=== PATIENT | male | born 1970 | race Caucasian/White ===

== ENCOUNTER 2020-07-31 16:43 | Emergency (ER) | payer MEDICAID, OTHER ==
--- NOTE | 2020-07-31 16:57 | ER Document Report ---
ED Medical Screen (RME) - General Chief Complaint: Chest Pain > 30 Stated Complaint: CHEST PAIN Time Seen by Provider: 07/31/20 16:52 Primary Care Provider: KIMBER THEODORE PA [Primary Care Provider] - Follow up as needed Mode of Arrival: Ambulatory Information source: Patient Notes: 49-year-old male presented ED for complaint of chest pain since this morning. He states it has been intermittent since then. States it is a level 3 out of 5 pain. He states the pain is a dull ache. Denies any shortness of breath. He states it does radiate to his back. He states is between his shoulder blades in the back. He denies any cardiac history. He states his mother did have cardiac problems but they started in her 60s. We will get blood chest x-ray EKG and have patient seen by a provider. States he smokes 1/2 pack a day, drinks a sixpack on the weekend, denies any illicit drugs. I have greeted and performed a rapid initial assessment of this patient. A comprehensive ED assessment and evaluation of the patient, analysis of test results and completion of medical decision making process will be conducted by an additional ED providers. TRAVEL OUTSIDE OF THE [place] IN LAST 30 DAYS: No - Related Data Allergies/Adverse Reactions: No Known Allergies Allergy (Verified 07/31/20 16:56) Past Medical History - Past Medical History Cardiac Medical History: Denies: Hx Coronary Artery Disease, Hx Heart Attack, Hx Hypertension Pulmonary Medical History: Denies: Hx Asthma, Hx Bronchitis, Hx COPD, Hx Pneumonia Neurological Medical History: Denies: Hx Cerebrovascular Accident, Hx Seizures Musculoskeltal Medical History: Denies Hx Arthritis - Immunizations Hx Diphtheria, Pertussis, Tetanus Vaccination: Yes - PT THINKS HE HAD PNEUMONIA SHOT IN 2007 Physical Exam - Vital signs Vitals: Temp Pulse Resp BP Pulse Ox 97.8 F 95 16 136/80 H 100 07/31/20 16:54 07/31/20 16:54 07/31/20 16:54 07/31/20 16:54 07/31/20 16:54 Course - Vital Signs Vital signs: Temp Pulse Resp BP Pulse Ox 97.8 F 95 16 136/80 H 100 07/31/20 16:54 07/31/20 16:54 07/31/20 16:54 07/31/20 16:54 07/31/20 16:54 Doctor's Discharge - Discharge Referrals: KIMBER THEODORE PA [Primary Care Provider] - Follow up as needed
--- NOTE | 2020-07-31 17:28 | RADIOLOGY REPORT (SQ) ---
EXAM DESCRIPTION: CHEST 2 VIEWS IMAGES COMPLETED DATE/TIME: 07/31/2020 5:06 pm REASON FOR STUDY: Chest pain radiates to back COMPARISON: None. TECHNIQUE: Frontal and lateral radiographic views of the chest acquired. NUMBER OF VIEWS: Two view. LIMITATIONS: None. FINDINGS: LUNGS AND PLEURA: No opacities, masses or pneumothorax. No pleural effusion. MEDIASTINUM AND HILAR STRUCTURES: No masses or contour abnormalities. HEART AND VASCULAR STRUCTURES: Heart normal size. No evidence for failure. BONES: No acute findings. HARDWARE: None in the chest. OTHER: No other significant finding. IMPRESSION: NO SIGNIFICANT RADIOGRAPHIC FINDING IN THE CHEST. TECHNICAL DOCUMENTATION: JOB ID: [id number] 2010 [employer]- All Rights Reserved Reading location - IP/workstation name: [email or web address]
[2020-07-31 17:32] LABS: ABSOLUTE BASOPHILS # (AUTO) 0.1 10^3/uL (0.0-0.2); ABSOLUTE EOSINOPHILS # (AUTO) 0.2 10^3/uL (0.0-0.6); ABSOLUTE LYMPHOCYTES (AUTO) 2.6 10^3/uL (0.5-4.7); ABSOLUTE MONOCYTES (AUTO) 0.7 10^3/uL (0.1-1.4); ABSOLUTE NEUT (AUTO) 8.9 10^3/uL (1.7-8.2); BASOPHILS % (AUTO) 0.7 % (0-2); EOSINOPHILS % (AUTO) 1.7 % (0-6); HEMATOCRIT 45.2 % (37.9-51.0); HEMOGLOBIN 15.5 g/dL (13.5-17.0); LYMPHOCYTES % (AUTO) 20.7 % (13-45); MEAN CORPUSCULAR HEMOGLOBIN 32.7 pg (27.0-33.4); MEAN CORPUSCULAR HGB CONC 34.3 g/dL (32.0-36.0); MEAN CORPUSCULAR VOLUME 95 fl (80-97); MONOCYTES % (AUTO) 5.7 % (3-13); PLATELET COUNT 408 10^3/uL (150-450); RED BLOOD COUNT 4.75 10^6/uL (4.35-5.55); SEGMENTED NEUTROPHILS % (AUTO) 71.2 % (42-78); TOTAL CELLS COUNTED % (AUTO) 100 %; WHITE BLOOD COUNT 12.5 10^3/uL (4.0-10.5)
[2020-07-31 17:47] LABS: ALBUMIN 4.4 g/dL (3.5-5.0); ALKALINE PHOSPHATASE 78 U/L (38-126); ANION GAP 10 (5-19); ASPARTATE AMINO TRANSFERASE 24 U/L (17-59); BILIRUBIN,DIRECT 0.3 mg/dL (0.0-0.4); BILIRUBIN,TOTAL 0.5 mg/dL (0.2-1.3); BLOOD UREA NITROGEN 12 mg/dL (7-20); CARBON DIOXIDE 28 mmol/L (22-30); CHLORIDE 102 mmol/L (98-107); GLUCOSE 125 mg/dL (75-110); POTASSIUM 4.4 mmol/L (3.6-5.0); TOTAL PROTEIN 7.1 g/dL (6.3-8.2)
[2020-07-31 18:37] LABS: NT PRO BNP 13 pg/mL (<125); TROPONIN I < 0.012 ng/mL
--- NOTE | 2020-07-31 21:52 | ER Document Report ---
ED General - General Chief Complaint: Chest Pain Stated Complaint: CHEST PAIN Time Seen by Provider: 07/31/20 16:52 Primary Care Provider: KIMBER THEODORE PA [NO LOCAL MD] - Follow up in 1 week JOSE DAVID BEST MD [ACTIVE PROVISIONAL STAFF] - Follow up in 3-5 days Mode of Arrival: Ambulatory Notes: 49-year-old male history of smoking presents with approximately 8 hours intermittent mild to moderate chest discomfort that feels like sharp pain behind sternum without radiation, associated symptoms, prior episodes, or aggravating or alleviating factors. Pain started while patient was at rest, comes for few minutes and goes away and happens several times throughout the day. Pain not exacerbated by exertion, not exacerbated by deep breathing. Patient denies any prior episodes, trauma, shortness of breath, change in chronic dry cough times years attributed to smoking, recent illness, fever, hemoptysis, recent travel/trauma/surgery/immobilization, DVT/PE/hypercoagulability history in self or family, cancer history, unexplained weight loss, lower extremity edema or pain, cardiac history, other cardiac risk factors other than smoking, alcohol abuse, drug use TRAVEL OUTSIDE OF THE [place] IN LAST 30 DAYS: No - Related Data Allergies/Adverse Reactions: No Known Allergies Allergy (Verified 07/31/20 16:56) Past Medical History - General Information source: Patient - Social History Smoking Status: Current Every Day Smoker Chew tobacco use (# tins/day): No Frequency of alcohol use: Social Drug Abuse: None Family History: Reviewed & Not Pertinent Patient has homicidal ideation: No - Past Medical History Cardiac Medical History: Denies: Hx Coronary Artery Disease, Hx Heart Attack, Hx Hypertension Pulmonary Medical History: Denies: Hx Asthma, Hx Bronchitis, Hx COPD, Hx Pneumonia Neurological Medical History: Denies: Hx Cerebrovascular Accident, Hx Seizures Musculoskeletal Medical History: Denies Hx Arthritis - Immunizations Hx Diphtheria, Pertussis, Tetanus Vaccination: Yes - PT THINKS HE HAD PNEUMONIA SHOT IN 2007 Review of Systems - Review of Systems Notes: REVIEW OF SYSTEMS: CONSTITUTIONAL : Denies fever, chills, or sweats. EENT: Denies recent cold/sinus symptoms, denies throat pain CARDIOVASCULAR: + chest pain, -MOI RESPIRATORY: Denies cough, denies shortness of breath. GASTROINTESTINAL: Denies abdominal pain, nausea/vomiting. GENITOURINARY: Denies difficulty urinating, painful urination. MUSCULOSKELETAL: Denies neck pain, back pain. SKIN: Denies rash or skin lesions. HEMATOLOGIC : Denies easy bruising or bleeding. LYMPHATIC: Denies swollen, enlarged glands. NEUROLOGICAL: Denies headache, denies change in gait. PSYCHIATRIC: Denies anxiety or stress or depression. Physical Exam - Vital signs Vitals: Temp Pulse Resp BP Pulse Ox 97.8 F 95 16 136/80 H 100 07/31/20 16:54 07/31/20 16:54 07/31/20 16:54 07/31/20 16:54 07/31/20 16:54 - Notes Notes: PHYSICAL EXAMINATION: GENERAL: Well-appearing, well-nourished, cheerful talkative middle-aged man appearing stated age chatting with myself and without any visible signs of discomfort and in no acute distress. HEAD: Atraumatic, normocephalic. EYES: Pupils equal round and appropriate constriction, sclera anicteric, c onjunctiva are normal. ENT: nares patent, moist mucous membranes. NECK: Normal range of motion, supple without lymphadenopathy LUNGS: Breath sounds clear to auscultation bilaterally and equal. No wheezes rales or rhonchi. Normal respiratory rate and effort HEART: Regular rate and rhythm without murmurs, rubs, or gallops, normal chest inspection, no chest tenderness, no rash ABDOMEN: Soft, nontender, no guarding, no masses, no CVAT EXTREMITIES: Normal range of motion, no pitting or edema. No cyanosis. NEUROLOGICAL: Awake, alert, conversing appropriately, moves all extremities s pontaneously. PSYCH: Normal mood, normal affect. SKIN: Warm, Dry, normal turgor, no rashes or lesions noted. Course - Re-evaluation Re-evalutation: 07/31/20 21:50 Patient with 1 day chest pain, atypical for ACS but given the age and risk factors will rule out with adapt score. Patient low risk on DAPT score so obtaining 0 and 2-hour troponins for ACS rule out. No signs of ischemia on EKG. given patient's age unable to rule out PE with PERC so obtain D-dimer which is appropriate for patient as Wells criteria are low. Patient will require close outpatient follow-up with PCP and cover seamer which I discussed with patient and at length. Patient follows at [facility] and will be making appointment to see PCP and cover seamer. Patient's presentation not consistent with aortic dissection, no Covid symptoms, no indication for emergent cardiology inpatient evaluation, heart score 2. 07/31/20 23:00 Repeat troponin remains negative, patient remains asymptomatic in ED, Patient ready for discharge with PCP and cardiology follow-up. Given extensive return to ED precautions which patient and demonstrate understanding of. Patient currently on monitor and respiratory rate 16, on multiple evaluations patient has had normal respiratory rate and has no respiratory symptoms. Vital signs include few measurements of tachypnea which does not match patient presentation and was likely erroneous reading. Patient's respiratory status normal throughout ED evaluation. - Vital Signs Vital signs: Temp Pulse Resp BP Pulse Ox 97.8 F 95 16 136/77 H 96 07/31/20 16:57 07/31/20 16:54 07/31/20 23:01 07/31/20 23:01 07/31/20 23:01 - Laboratory Result Diagrams: 07/31/20 17:18 07/31/20 17:18 Laboratory results interpreted by me: 07/31/20 07/31/20 17:18 17:18 WBC 12.5 H Absolute Neuts (auto) 8.9 H Glucose 125 H - EKG Interpretation by Me Additional EKG results interpreted by me: 07/31/20 21:52 Heart rate 90, sinus rhythm, no significant ST elevations or depressions, no significant T wave abnormalities, QTc 426 Discharge - Discharge Clinical Impression: Chest pain Qualifiers: Chest pain type: unspecified Qualified Code(s): R07.9 - Chest pain, unspecified Leukocytosis Qualifiers: Leukocytosis type: unspecified Qualified Code(s): D72.829 - Elevated white blood cell count, unspecified Disposition: HOME, SELF-CARE Additional Instructions: Chest Pain of Unclear Cause The exact cause of your chest pain isn't clear. Fortunately, there is no evidence of a dangerous medical condition. Further testing may be required to find the source of the pain. Most often, we find that this pain is coming from the chest wall -- the muscles or rib joints in the chest. But chest pain can come from the lung and lung lining, the esophagus, the heart valves or heart lining, and even the stomach or gallbladder. Rest. Eat lightly until the pain is gone. We may prescribe medicine for pain and inflammation. You should call the physician immediately if the pain radiates to the [place], jaw or arms; if you start to run a fever or develop a cough; or if you develop shortness of breath, or other new or alarming symptoms. You need to follow-up with your primary doctor and the cover seamer within 1 week to further investigate your chest pain. If you have any worsening pain, trouble breathing, dizziness, fainting, leg swelling, or any other worsening or alarming symptoms return to the emergency department immediately. Your white blood cells were high on this visit, you need to follow this up with your primary doctor. It may be due to a benign condition, but if it does not go away it is possible that this could be secondary to a dangerous condition such as cancer. Your blood pressure was also high (145/100) during this ED visit, untreated blood pressure is a risk factor for heart attack, stroke, and , he should have it repeated with your primary doctor. Referrals: JOSE DAVID BEST MD [ACTIVE PROVISIONAL STAFF] - Follow up in 3-5 days KIMBER THEODORE PA [NO LOCAL MD] - Follow up in 1 week
[2020-07-31 23:39] VITALS: BP 136/77
--- NOTE | 2020-08-01 19:17 | EKG REPORT ---
SEVERITY:- NORMAL ECG - SINUS RHYTHM : Confirmed by: Gio Heart MD 01-Aug-2020 19:17:01
== END 2020-07-31 23:40 | disposition home or self-care (01) ==
LOC: ER 16:43
DX: R07.9 Chest pain, unspecified (principal); D72.829 Elevated white blood cell count, unspecified; R05 Cough; F17.200 Nicotine dependence, unspecified, uncomplicated
CPT/HCPCS: 36415; 71046; 80053; 83735; 83880; 84484; 85025; 85379; 93005; 93010; 99285